=== PATIENT | male | born 1960 | race African-American/Black ===

== ENCOUNTER → 2016-09-06 | Outpatient (CLI) | payer MEDICARE, MEDICAID ==
[~2016-09-06] MED LIST: AMLODIPINE BESY10 MG ORAL; ASPIRIN81 MG ORAL; ATORVASTATIN CA20 MG ORAL; BENAZEPRIL HCL20 MG ORAL; DSS250 MG ORAL; JANUVIA100 MG ORAL; METFORMIN HCL850 M1 ORAL; PROVENTIL2 MG ORAL
--- NOTE | 2016-09-06 11:40 | Diagnostic Imaging Report ---
Indication: COUGH Technique: One view of the chest Comparison: 02/02/2013 Findings: Lungs and pleural spaces are clear. Heart size is normal. There is a calcified granuloma at the right lung base again demonstrated. No significant interim change Impression: No acute process
== END | disposition home or self-care (01) ==
LOC: RAD 10:09
DX: R05 Cough (principal)
CPT/HCPCS: 71020

== ENCOUNTER 2018-12-25 06:48 | Outpatient (CLI) | payer MEDICARE, MEDICAID ==
--- NOTE | 2018-12-28 15:07 | Diagnostic Imaging Report ---
Indication: Chronic left knee pain Technique: Axial proton-density fat-saturated, sagittal proton density, sagittal proton density fat saturated, coronal T1, coronal proton-density fat-saturated, coronal STIR images were obtained of the left knee Comparison: none Findings: There is marrow edema extending from the tibial spines to the anterolateral cortex. The remainder of the marrow signal is normal. The patellar articular surface demonstrates numerous subchondral cysts and there appears to be patellar chondromalacia. There are also degenerative changes of the medial and lateral joint compartments. The anterior cruciate ligament is severely attenuated, consistent with tear. The posterior cruciate ligament is intact. The fibular collateral and medial collateral ligaments appear to be intact. There is abnormal signal within the body and posterior horn of the medial meniscus, consistent with a complex tear and degeneration.. Incidentally noted is a tiny popliteal cyst Impression: Severe osteoarthrosis of the patellofemoral compartment and to a lesser extent the medial lateral joint compartments. Edema of the anterior tibia, could indicate a bone contusion Evidence of degeneration and tear involving the body and posterior horn of the medial meniscus Positive for torn anterior cruciate ligament Small popliteal cyst incidentally noted This agrees with the preliminary interpretation provided by Dr. Mccollum
--- NOTE | 2018-12-28 15:11 | Diagnostic Imaging Report ---
Indication: Reason For Exam: PAIN Technique: Axial and sagittal and coronal proton-density fat-saturated, sagittal proton density, coronal T1 and coronal STIR images obtained of the right knee Comparison: none Findings: There is severe osteoarthrosis with grade 4 chondrosis and multiple subchondral cysts, particularly involving the lateral joint compartment. There is underlying marrow edema presumably related to this. There is degeneration and evidence of a tear of the body and anterior horn of the lateral meniscus. The anterior cruciate ligament is markedly attenuated and likely torn. The posterior cruciate ligament is intact. The medial collateral and fibular collateral ligaments are intact. The remainder of the marrow edema is normal Impression: Severe osteoarthrosis with grade 4 chondrosis, subchondral cysts, and underlying marrow edema Degeneration and tear of the body and anterior horn of the lateral meniscus Attenuated and likely torn anterior cruciate ligament This agrees with the preliminary interpretation provided overnight by Dr. Mccollum
== END 2018-12-25 08:48 | disposition home or self-care (01) ==
LOC: MRI 06:48
DX: M54.9 Dorsalgia, unspecified (principal); G89.29 Other chronic pain; M25.562 Pain in left knee; M25.561 Pain in right knee; Z88.0 Allergy status to penicillin